=== PATIENT | male | born 2005 ===

== ENCOUNTER 2024-06-26 06:14 | Day surgery (SDC) | payer OTHER, SELFPAY ==
[2024-06-26] VITALS (10 sets, daily range): BP systolic 130–156; BP diastolic 56–84; BMI 28.3
[2024-06-26] MEDS: TYLENOL 1000 MG PO (13:41)
[2024-06-26] MEDS: DILAUDID 0.5 MG IV (15:01)
== END 2024-06-26 16:50 | disposition home or self-care (01) ==
LOC: SDS 06:14
PROVIDERS: ATTENDING PHYSICIAN Otolaryngology
DX: S02.2XXA Fracture of nasal bones, initial encounter for closed fracture (principal); X58.XXXA Exposure to other specified factors, initial encounter; Y93.63 Activity, rugby; J34.2 Deviated nasal septum
CPT/HCPCS: 21320